=== PATIENT | female | born 1960 | race Caucasian/White ===

== ENCOUNTER 2022-12-14 16:35 | Emergency (ER) | payer OTHER, SELFPAY ==
[2022-12-14 16:50] VITALS: BP 123/84; PULSE 73; RESP 18; TEMP 36.7; O2SAT 96; BMI 30.2
--- NOTE | 2022-12-14 16:55 | XR_ITS ---
The [address] [address] Patient Name: MAGDALENA BERMAN MRN: [id number] date: 1960 Sex: F Assigned Patient Location: ER Current Patient Location: ER Accession/Order Number: [id number] Exam Date: 12/14/2022 17:11 Report Date: 12/14/2022 17:31 At the request of: MIGUELANGEL FRAZIER Procedure: XR hand RT min 3V EXAM: XR hand RT min 3V HISTORY: dog bite COMPARISON: None. TECHNIQUE: 3 views FINDINGS: IMPRESSION: Subcutaneous soft tissue edema and subcutaneous air adjacent to the ulnar aspect of the hand. No radiodense foreign body, fracture, dislocation, subluxation or osseous lesion. Degenerative changes of the DIP joints most pronounced of the second. The remainder of the joint spaces are unremarkable for patient's age. Electronically authenticated by: SHANKAR NORRIS Date: 12/14/2022 17:31
[2022-12-14] MEDS: ADACEL DIPH,PERTUSS(ACELL),TET VAC/PF 0.5 ML ADULT SYRINGE IM (17:31)
[2022-12-14 17:38] VITALS: BP 137/66; PULSE 70; RESP 18; O2SAT 98
--- NOTE | 2022-12-14 17:41 | ED_ITS ---
HPI - Extremity Injury (Upper) General Chief Complaint: Extremity Injury, Upper Stated Complaint: DOG BITE Time Seen by Provider: 12/14/22 17:16 Source: patient Mode of arrival: walk-in Limitations: no limitations History of Present Illness HPI narrative: 62-year-old female presented for a dog bite. It was sustained to her right hand by her own dog just before coming into the emergency department. She cannot reca ll her last tetanus shot, it's been many years. No other injuries were sustained. Related Data Home Medications Medication Instructions Recorded Confirmed amlodipine 2.5 mg tablet 2.5 mg PO DAILY 12/14/22 12/14/22 aspirin 81 mg tablet,delayed mg 12/14/22 release clopidogrel 75 mg tablet 75 mg PO DAILY 12/14/22 12/14/22 isosorbide mononitrate 30 mg 30 mg PO DAILY 12/14/22 12/14/22 tablet,extended release 24 hr losartan 50 mg tablet 50 mg PO DAILY 12/14/22 12/14/22 metoprolol tartrate 25 mg tablet 25 mg PO Q12H 12/14/22 12/14/22 pitavastatin calcium 2 mg tablet 2 mg PO .qhs 12/14/22 12/14/22 (Livalo) ranolazine 500 mg tablet,extended 500 mg PO Q12H 12/14/22 12/14/22 release,12 hr Previous Rx's Medication Instructions Recorded amoxicillin 875 mg-potassium 1 tab PO BID #10 tabs 12/14/22 clavulanate 125 mg tablet Allergies Allergy/AdvReac Type Severity Reaction Status Date / Time atorvastatin [From Lipitor] AdvReac Intermediate Verified 12/14/22 16:50 bacitracin AdvReac Intermediate Verified 12/14/22 16:50 [From Neosporin ([id number])] neomycin AdvReac Intermediate Verified 12/14/22 16:50 [From Neosporin ([id number])] polymyxin B AdvReac Intermediate Verified 12/14/22 16:50 [From Neosporin ([id number])] tramadol AdvReac Intermediate Verified 12/14/22 16:50 vicodin AdvReac Intermediate Uncoded 12/14/22 16:50 Review of Systems ROS Narrative A ten point review of systems is negative except as noted above. PFSH PFSH Social History Smoking status: Current every day smoker Exam Narrative Exam Narrative: Nurses note and vital signs reviewed and patient is not hypoxic. General: The patient appears well and in no apparent distress. Patient is resting comfortably on cart. Skin: Warm, dry, no pallor noted. There is no rash noted. Head: Normocephalic, atraumatic Eye: Normal conjunctiva, no drainage Ears, Nose, Mouth, and Throat: oral mucosa is moist. Nares patent. Cardiovascular: Regular Rate and Rhythm Respiratory: Patient is in no distress, no accessory muscle use, lungs are clear to auscultation, no wheezing, rales or rhonchi Back: non-tender GI: nontender Musculoskeletal: the right hand is examined. She has three superficial lacerations present on the dorsum at the base of her 5th finger. Fingers have full range of motion and are not swollen. No active bleeding or foreign body. No other wounds present. Neurological: A&O, normal speech Psychiatric: Cooperative Constitutional Vital Signs, click to edit/add: Last Vital Signs Temp 98.1 F 12/14/22 16:50 Pulse 70 12/14/22 17:38 Resp 18 12/14/22 17:38 BP 137/66 12/14/22 17:38 Pulse Ox 98 12/14/22 17:38 O2 Del Method Room Air 12/14/22 16:50 Course Vital Signs Vital signs: Vital Signs Temperature 98.1 F 12/14/22 16:50 Pulse Rate 73 12/14/22 16:50 Respiratory Rate 18 12/14/22 16:50 Blood Pressure 123/84 12/14/22 16:50 Pulse Oximetry 96 12/14/22 16:50 Oxygen Delivery Method Room Air 12/14/22 16:50 Temperature 98.1 F 12/14/22 16:50 Pulse Rate 70 12/14/22 17:38 Respiratory Rate 18 12/14/22 17:38 Blood Pressure 137/66 12/14/22 17:38 Pulse Oximetry 98 12/14/22 17:38 Oxygen Delivery Method Room Air 12/14/22 16:50 MDM - Extremity Injury (Upper) MDM Narrative Medical decision making narrative: tetanus is updated and wound was cleansed and dressed. X-rays negative per radiologist except for soft tissue swelling and she's prescribed prophylactic Augmentin. Treatment diagnosis and follow-up were discussed with the patient. Differential Diagnosis Differential diagnosis: Likely other (dog bite, fracture, foreign body) Imaging Data right hand x-ray: Radiologist's impression: Procedure: XR hand RT min 3V EXAM: XR hand RT min 3V HISTORY: dog bite COMPARISON: None. TECHNIQUE: 3 views FINDINGS: IMPRESSION: Subcutaneous soft tissue edema and subcutaneous air adjacent to the ulnar aspect of the hand. No radiodense foreign body, fracture, dislocation, subluxation or osseous lesion. Degenerative changes of the DIP joints most pronounced of the second. The remainder of the joint spaces are unremarkable for patient's age. Electronically authenticated by: SHANKAR NORRIS Date: 12/14/2022 17:31 Discharge Plan Discharge Chief Complaint: Extremity Injury, Upper Clinical Impression: Dog bite Patient Disposition: Home, Self-Care Time of Disposition Decision: 17:39 Condition: Good Prescriptions / Home Meds: New amoxicillin-pot clavulanate 875-125 mg tablet 1 tab PO BID Qty: 10 0RF No Action amlodipine 2.5 mg tablet 2.5 mg PO DAILY aspirin 81 mg tablet,delayed release (DR/EC) clopidogrel 75 mg tablet 75 mg PO DAILY isosorbide mononitrate 30 mg tablet extended release 24 hr 30 mg PO DAILY losartan 50 mg tablet 50 mg PO DAILY metoprolol tartrate 25 mg tablet 25 mg PO Q12H ranolazine 500 mg tablet extended release 12 hr 500 mg PO Q12H Livalo 2 mg tablet 2 mg PO .qhs Instructions: Animal Bite (ED) Additional Instructions: Dr Morris, cardiology Stand Alone Forms: Portal Instructions Referrals: Physician,Non-Staff, MD [Primary Care Provider] - 1 week
== END 2022-12-14 17:51 | disposition home or self-care (01) ==
PROVIDERS: Emergency Provider Emergency Medicine
DX: S60.571A Other superficial bite of hand of right hand, initial encounter (principal); W54.0XXA Bitten by dog, initial encounter; Z23 Encounter for immunization; F17.210 Nicotine dependence, cigarettes, uncomplicated; Z79.899 Other long term (current) drug therapy; Z79.82 Long term (current) use of aspirin
CPT/HCPCS: 73130; 90471; 90715; 99283